=== PATIENT | female | born 1995 ===

== ENCOUNTER 2016-11-21 18:37 | Observation (INO) | payer OTHER ==
[2016-11-21] MEDS ORDERED: Morphine INJ* 4 MG/ML 1 ML SYRINGE IV ONE (21:06)
[2016-11-21] MEDS ORDERED: NS 0.9% 1000 ML* 1,000 ML IV ONE (21:06)
[2016-11-21] MEDS ORDERED: Ondansetron INJ* 2 MG/ML VIAL IV ONE (21:06)
[2016-11-21] MEDS ORDERED: Morphine INJ* 4 MG/ML 1 ML SYRINGE ONE (21:09)
[2016-11-21] MEDS ORDERED: Ondansetron INJ* 2 MG/ML VIAL ONE (21:10)
[2016-11-21 21:48] LABS: Albumin 4.2 g/dL (3.2-5.2); BUN/Creatinine Ratio 10.8 (8-20); C Reactive Protein 4.38 mg/L (< 5.00); Calcium 9.4 mg/dL (8.6-10.3); EGFR African American 112.7 (>60); EGFR Non-African American 87.6 (>60); Globulin 3.4 g/dL (2-4); Hematocrit 38 % (35-47); Hemoglobin 12.4 g/dl (12.0-16.0); Mean Corpuscular HGB Conc 32 g/dl (31-36); Mean Corpuscular Hemoglobin 25 pg (27-31); Mean Corpuscular Volume 78 fL (80-97); Mean Platelet Volume 8 um3 (7.4-10.4); Potassium 3.6 mmol/L (3.5-5.0); Red Blood Count 4.92 10^6/ul (4.0-5.4); Red Cell Distribution Width 13 % (10.5-15); Total Bilirubin 0.6 mg/dL (0.2-1.0); Total Protein 7.6 g/dL (6.4-8.9); White Blood Count 16.5 10^3/ul (3.5-10.8)
--- NOTE | 2016-11-21 22:49 | RAD ---
Indication: Right lower quadrant pain. COMPARISON: There are no prior studies available for comparison. TECHNIQUE: Multiple real-time transabdominal images of the pelvis were obtained. FINDINGS: The uterus is normal in size, shape and echogenicity. The uterus measured 7.8 x 3.1 x 3.9 cm. The endometrial echo measured 0.8 cm in thickness. The right ovary measured 3.1 x 1.6 x 3.3 cm. The left ovary measured 3.9 x 2.9 x 2.8 cm. There is vascular flow within both ovaries. There is a 2.3 x 2.2 x 2.4 cm left ovarian cyst. This is most consistent with a physiologic cyst. No free intraperitoneal fluid is seen. IMPRESSION: SMALL LEFT OVARIAN CYST, OTHERWISE UNREMARKABLE STUDY.
--- NOTE | 2016-11-21 22:51 | RAD ---
INDICATION: Right lower quadrant pain. COMPARISON: There are no prior studies available for comparison. TECHNIQUE: Multiple real-time images of the right lower quadrant were obtained using a graded compression technique. FINDINGS: There is a small amount of free intraperitoneal fluid in the right lower quadrant. No focal fluid collection is seen. The appendix was not visualized limiting the study. IMPRESSION: 1. THE APPENDIX WAS NOT VISUALIZED LIMITING THE STUDY, CONSIDER A CT OF THE ABDOMEN AND PELVIS WITH INTRAVENOUS AND ORAL CONTRAST FOR FURTHER EVALUATION. 2. SMALL AMOUNT OF FREE INTRAPERITONEAL FLUID IN THE RIGHT LOWER QUADRANT.
[2016-11-21 23:14] LABS: Urine Bilirubin Negative (Negative); Urine Glucose Negative (Negative); Urine Nitrite Negative (Negative)
[2016-11-22] MEDS ORDERED: Iohexol 300* (CONTRAST) 10 ML SDV IV ONE (00:25)
[2016-11-22] MEDS ORDERED: HYDROmorphone* 1 MG/ML 1 ML SYR IV SLOW PU PRN (04:22)
[2016-11-22] MEDS ORDERED: Ondansetron INJ* 2 MG/ML VIAL IV PRN ×2 (04:23→10:37)
[2016-11-22] MEDS ORDERED: Piperac/Tazob 3.375 gm in NS* 3.375 GM/100 ML BAG IVPB ONE (04:24)
--- NOTE | 2016-11-22 06:00 | ED ---
Sandee, Doctor,Clau, scribed for Asha Nickerson MD on 11/21/16 at 2223 . GI/ HPI - HPI Summary HPI Summary: 21 year old female arrived to [facility] c/o lower abdominal pain and n/v since 14: 00 today. She rates her pain as 10/10 now, 5/10 at onset. She describes the onset as sudden; has no other relevant medical problems. She is a student at [employer]; her LMP was on 11/02/2016, denies any possibility of . - History of Current Complaint Chief Complaint: EDAbdPain Time Seen by Provider: 11/21/16 20:49 Stated Complaint: ABD PAIN,VOMITING Hx Obtained From: Patient Onset/Duration: Started Hours Ago Timing: Constant Severity: Moderate Current Severity: Moderate Pain Intensity: 10 Associated Signs and Symptoms: Positive: Nausea, Vomiting, Fever - subjective - Allergy/Home Medications Allergies/Adverse Reactions: Allergies Allergy/AdvReac Type Severity Reaction Status Date / Time chloroquinolone Allergy Unknown Uncoded 08/12/15 01:18 Reaction Details PMH/Surg Hx/FS Hx/Imm Hx Psychiatric History: Denies: Hx Eating Disorder, Hx of Violent Episodes Against Others Infectious Disease History: No Infectious Disease History: Denies: Traveled Outside the [place] in Last 30 Days - Family History Known Family History: Negative: Cardiac Disease - Social History Occupation: Student Alcohol Use: Rare Alcohol Amount: 5-6 drinks Substance Use Type: Reports: None Smoking Status (MU): Never Smoked Tobacco Review of Systems Positive: Fever - subjective Positive: Abdominal Pain, Vomiting, Nausea All Other Systems Reviewed And Are Negative: Yes Physical Exam Triage Information Reviewed: Yes Vital Signs On Initial Exam: Initial Vitals Temp Pulse Resp BP Pulse Ox 98.3 F 78 16 136/69 100 11/21/16 18:39 11/21/16 18:39 11/21/16 18:39 11/21/16 18:39 11/21/16 18:39 Appearance: Positive: Well-Appearing, No Pain Distress Skin: Positive: Warm, Skin Color Reflects Adequate Perfusion, Dry Eyes: Positive: EOMI, TAMMY ENT: Positive: Pharynx normal, TMs normal Neck: Positive: Supple, Nontender Respiratory/Lung Sounds: Positive: Clear to Auscultation, Breath Sounds Present. Negative: Rales, Rhonchi, Wheezes Cardiovascular: Positive: RRR. Negative: Murmur, Rub Abdomen Description: Positive: Nontender, Soft. Negative: Distended, Guarding Bowel Sounds: Positive: Present Musculoskeletal: Positive: Strength/ROM Intact Neurological: Positive: Sensory/Motor Intact, Alert, Oriented to Person Place, Time, CN Intact II-III Psychiatric: Positive: Affect/Mood Appropriate Diagnostics - Vital Signs Vital Signs Temp Pulse Resp BP Pulse Ox 11/21/16 21:26 18 11/21/16 19:43 97.8 F 74 18 121/65 100 11/21/16 18:39 98.3 F 78 16 136/69 100 - Laboratory Lab Results: Lab Results 11/21/16 11/21/16 11/21/16 Range/Units 21:20 21:20 21:20 WBC 16.5 H (3.5-10.8) 10^3/ul RBC 4.92 (4.0-5.4) 10^6/ul Hgb 12.4 (12.0-16.0) g/dl Hct 38 (35-47) % MCV 78 L (80-97) fL MCH 25 L (27-31) pg MCHC 32 (31-36) g/dl RDW 13 (10.5-15) % Plt Count 312 (150-450) 10^3/ul MPV 8 (7.4-10.4) um3 Neut % (Auto) 80.3 (38-83) % Lymph % (Auto) 12.5 L (25-47) % Drew % (Auto) 7.0 (1-9) % Eos % (Auto) 0.1 (0-6) % Baso % (Auto) 0.1 (0-2) % Absolute Neuts (auto) 13.2 H (1.5-7.7) 10^3/ul Absolute Lymphs (auto) 2.1 (1.0-4.8) 10^3/ul Absolute Monos (auto) 1.2 H (0-0.8) 10^3/ul Absolute Eos (auto) 0 (0-0.6) 10^3/ul Absolute Basos (auto) 0 (0-0.2) 10^3/ul Absolute Nucleated RBC 0.02 10^3/ul Nucleated RBC % 0.1 Sodium 134 (133-145) mmol/L Potassium 3.6 (3.5-5.0) mmol/L Chloride 100 L (101-111) mmol/L Carbon Dioxide 25 (22-32) mmol/L Anion Gap 9 (2-11) mmol/L BUN 9 (6-24) mg/dL Creatinine 0.83 (0.51-0.95) mg/dL Est GFR ( Amer) 112.7 (>60) Est GFR (Non-Af Amer) 87.6 (>60) BUN/Creatinine Ratio 10.8 (8-20) Glucose 105 H (70-100) mg/dL Lactic Acid 1.0 (0.5-2.0) mmol/L Calcium 9.4 (8.6-10.3) mg/dL Total Bilirubin 0.60 (0.2-1.0) mg/dL AST 16 (13-39) U/L ALT 11 (7-52) U/L Alkaline Phosphatase 62 (34-104) U/L C-Reactive Protein 4.38 (< 5.00) mg/L Total Protein 7.6 (6.4-8.9) g/dL Albumin 4.2 (3.2-5.2) g/dL Globulin 3.4 (2-4) g/dL Albumin/Globulin Ratio 1.2 (1-3) Lipase 33 (11.0-82.0) U/L Beta HCG, Quant 1.00 mIU/mL Result Diagrams: 11/21/16 21:20 11/21/16 21:20 Lab Statement: Any lab studies that have been ordered have been reviewed, and results considered in the medical decision making process. - CT A/P CT CT Interpretation Completed By: Radiologist - Impression: suspected early acute appendicitis - Ultrasound No standard instances Ultrasound Interpretation Completed By: Radiologist - Pelvis US - IMPRESSION: SMALL LEFT OVARIAN CYST, OTHERWISE UNREMARKABLE STUDY. GIGU Course/Dx - Course Course Of Treatment: 21 yo female with rlq pain u/s neg for ovarian cyst with wbc of [address] with acute appendicitis. Pt admitted by Dr. Hunt - Diagnoses Provider Diagnoses: Appendicitis - Physician Notifications Discussed Care Of Patient With: 04:00 - Spoke with Dr. Hunt ([facility] Surgeon) about pt. He agrees to admit her. Discharge - Discharge Plan Condition: Stable Disposition: ADMITTED TO [facility] documentation as recorded by the scribe, Doctor,Clau accurately reflects the service I personally performed and the decisions made by me, Asha Nickerson MD.
--- NOTE | 2016-11-22 07:59 | RAD ---
INDICATION: Right lower quadrant pain COMPARISON: Pelvic sonogram November 21, 2016 TECHNIQUE: Axial source images were obtained from the hemidiaphragms to the symphysis pubis following administration of oral and intravenous contrast. 100 mL Omnipaque 300 was utilized. Coronal and sagittal reconstructed images were acquired. Lung bases: The lung bases are clear. Liver: The liver is normal in size. There are no masses. There is no ductal dilatation. Gallbladder: There are no calcified gallstones. There is no evidence of wall thickening or pericholecystic fluid. Spleen: The spleen is normal in size. There are no masses. Pancreas: There is no focal pancreatic mass or ductal dilatation. Adrenal glands: There is no evidence of adrenal mass. Kidneys: The kidneys are normal in size and position. There are prompt nephrograms and there is prompt excretion bilaterally. There are no renal parenchymal masses. There is no evidence of nephrolithiasis. Adenopathy: There is no evidence of adenopathy by size criteria. Fluid collections: There are no free or localized fluid collections. Vessels:There are no significant atherosclerotic changes involving the aorta. There is no focal aneurysm. The iliac vessels are normal in caliber. The IVC appears normal. GI tract: The upper GI tract is unremarkable. The appendix is fluid-filled and dilated to 8 mm. The findings suggest an early acute appendicitis. There is no significant periappendiceal inflammatory change. There are no findings of obstruction or perforation. The remainder of the lower GI tract is normal. Pelvic organs: The uterus and right adnexa are unremarkable. There is a 2.7 cm left ovarian cyst Bladder: There are no bladder masses. Abdominal and pelvic soft tissues: The extraperitoneal abdominal and pelvic soft tissues appear normal.. Osseous structures: There are no acute osseous findings. Other: None IMPRESSION: 1. Suspect early acute appendicitis. 2. 2.7 cm left ovarian cyst
[2016-11-22] MEDS ORDERED: Buffered Lidocaine 1% SYRIN* 3 ML/SYR SYRINGE INTRADERM ONE (08:40)
[2016-11-22] MEDS ORDERED: Famotidine IV* 10 MG/ML 2 ML (20 mg) IV SLOW PU ONE (08:40)
--- NOTE | 2016-11-22 09:36 | HP ---
DATE OF ADMISSION: 11/21/16 PATIENT OF: Dr. Feliz Hunt (dictated by DAQUAN Ambrocio) REASON FOR ADMISSION: Lower abdominal pain, and possible appendicitis. HISTORY OF PRESENT ILLNESS: Ms. Cardenas is a pleasant 21-year-old female who presented to the Emergency Room last night with complaints of lower abdominal pain since earlier that afternoon. She notes that her pain started roughly around 2 o'clock in the afternoon localized to the lower abdomen and gradually radiated to the right lower quadrant. She reports that the pain was worse, rated as 10/10, but got slightly better upon presentation to the ER. She also reports associated nausea and vomiting, but denies any changes in the bowel habits or bleeding per rectum. She has never had any similar complaints in the past. She is a student at [employer], and her last menstrual period was on . Patient was evaluated in the ER and she had an ultrasound as well as CT scan of the abdomen and pelvis that revealed a fluid-filled appendix with questionable early appendicitis for which she was admitted overnight for observation. The following morning, the patient is actually very comfortable, and denies any returned abdominal pain. She had only one shot of morphine last night for pain, and she went to the bathroom multiple times with no complaints of dysuria, hematuria or urinary frequency. PAST MEDICAL HISTORY: Essentially unremarkable. She denies any history of heart, lung, liver or kidney disease. PAST SURGICAL HISTORY: Significant for excision of a cyst above her right eyelid , but denies any history of abdominal surgeries. CURRENT MEDICATIONS: She takes no medications at home. ALLERGIES: She is allergic to CHLOROQUINOLONE - which is a drug used for treatment of malaria. FAMILY HISTORY: She denies any family history of colorectal malignancies. SOCIAL HISTORY: Patient is a student at [employer], majoring in biology. She consumes alcohol occasionally, but never smoked and denies illicit drug use. REVIEW OF SYSTEMS: See HPI; otherwise, negative. She denies any headache, dizziness, blurred vision. No chest pain, shortness of breath or hemoptysis. She admits to lower abdominal pain with associated nausea and vomiting, but denies any recent changes in her bowel habits. No flank pain, dysuria, hematuria, or urinary frequency. PHYSICAL EXAMINATION GENERAL: She is a pleasant, healthy-appearing, young female in no acute distress or discomfort at the time of admission. VITAL SIGNS: Her vitals reveal a temperature of 98.0 orally, pulse 62, respirations 18, blood pressure 103/56, and O2 sat of 100% on room air. HEENT: Sclerae anicteric. PERRLA. EOMs intact. Oropharynx is pink, moist, with no exudate. NECK: Supple. Trachea midline. No cervical adenopathy, thyromegaly, or JVD. LUNGS: Clear to auscultation bilaterally. HEART: Regular rate and rhythm. Normal S1 and S2 without rubs, murmurs, or gallops. BACK: With normal curvature. No CVA tenderness. BREAST EXAM: Deferred at this time. ABDOMEN: Soft and nondistended. The abdomen was palpated throughout, and no significant tenderness was noted, especially in the right lower quadrant; however, patient experienced a mild rebound tenderness over McBurney's point when exam was performed. There is no guarding, rigidity, and no evidence of hernias, masses or hepatosplenomegaly. EXTREMITIES: Without cyanosis, clubbing, or edema. NEUROLOGIC: Grossly intact. RECTAL EXAM: Deferred at this time. LABORATORY DATA: Patient had CBC in the ER revealing a white count of 16,500, hemoglobin 12.4, hematocrit 38, and platelets of 312. Chemistry - sodium 134, potassium 3.6, chloride 100, CO2 25, BUN 9, creatinine 0.8, glucose 105. Her LFTs and lipase were essentially within normal limits. Her Beta HCG quantitative was normal with no evidence of . ACCESSORY DIAGNOSTIC DATA: In the ER, the patient first had a pelvic ultrasound that revealed evidence of a small left ovarian cyst; otherwise unremarkable. She also had an abdominal ultrasound that failed to reveal any visible appendix, for which a CT scan of the abdomen and pelvis was recommended. She went on to have a CT scan of the abdomen and pelvis that revealed a fluid-filled appendix with no evidence of any inflammation around, but suspected early acute appendicitis. She also had a 2.7 cm left ovarian cyst. ASSESSMENT: A 21-year-old female with acute onset of right lower quadrant abdominal pain that has improved upon admission overnight using IV fluids and antibiotics. She also had abdominal ultrasound and CT scan with findings suspicious for acute early appendicitis. PLAN: I went on and discussed with the patient the findings of her physical exam as well as the findings of her ultrasound and CT scan from last night. She appears to be comfortable this morning with no recurrent abdominal pain. However, she experienced some rebound tenderness over the right lower quadrant upon examination. The case will be discussed with Dr. Garces regarding further recommendation of possible early appendicitis. I discussed with the patient the possibility of proceeding with a laparoscopic appendectomy given her exam findings and the radiographic evidence. The rationale, indications, risks and benefits were discussed with her today. Risks include but are not limited to infection, bleeding, and injury to adjacent structures. She understood, and wishes to proceed with surgery if indicated. Again, I will discuss the case with Dr. Garces for reexamination and determination if patient needs to be taken to the surgical suite this morning in anticipation for a laparoscopic appendectomy. We will follow her up accordingly. DAQUAN HASSAN [id number]/[facility] #: [id number] RADHA
[2016-11-22] MEDS ORDERED: ceFOXitin 2 GM IVPREMIX* 2 GM/50 ML BAG ONE (09:42)
[2016-11-22] MEDS ORDERED: Bupivacaine 0.25% EPI 200,000* 30 ML SDV ONE (10:05)
[2016-11-22] MEDS ORDERED: Cisatracurium* 2 MG/ML MDV 10 ML ONE (10:30)
[2016-11-22] MEDS ORDERED: fentaNYL* 50 MCG/ML 2 ML VIAL (100 MCG VIAL) ONE ×3 (10:30→12:25)
[2016-11-22] MEDS ORDERED: fentaNYL* 50 MCG/ML 2 ML VIAL (100 MCG VIAL) IV PRN (10:37)
[2016-11-22] MEDS ORDERED: PROCHLORPERAZINE INJ 5 MG/ML 2 ML VIAL IV PRN (10:37)
[2016-11-22] MEDS ORDERED: HYDROmorphone* 1 MG/ML 1 ML SYR IV PRN (10:37)
[2016-11-22] MEDS ORDERED: DiMENhydriNATE IV* 50 MG/ML VIAL IV PUSH PRN (10:37)
[2016-11-22] MEDS ORDERED: Succinylcholine* 20 MG/ML 10 ML VIAL ONE (10:46)
[2016-11-22] MEDS ORDERED: Lidocaine 2% PF* 5 ML VIAL ONE (10:46)
[2016-11-22] MEDS ORDERED: Dexamethasone IV* 4 MG/ML 1 ML (4 MG) ONE (10:46)
[2016-11-22] MEDS ORDERED: Propofol* 10 MG/ML 20 ML BTL IV PUSH ONE (10:46)
[2016-11-22] MEDS ORDERED: Desflurane* 240 ML INH ONE (11:15)
--- NOTE | 2016-11-22 11:55 | SURGPN ---
Brief Operative Note - Surgery Procedures: OPERATIVE REPORT PRE-OP: Acute appendicitis POST-OP: Same, Left ovarian cyst PROCEDURE: Laparoscopic Appendectomy SURGEON: MD Grey ANESTHESIA: General with Local with Dr. Knight ASST: none IVF: 1 liter of crystalloid EBL: min SPECIMEN: appendix DRAIN: none WOUND CLASS: 3 COMPLICATIONS: none TO PACU
[2016-11-22] MEDS ORDERED: Ketorolac INJ* 30 MG/ML 1 ML VIAL IV PUSH PRN (11:57)
[2016-11-22] MEDS ORDERED: oxyCODONE/Acetamin 5/325 MG* TAB PO PRN (11:58)
[2016-11-22] MEDS ORDERED: Neostigmine Methylsulfate* 2 MG/2 ML SYRINGE ONE (12:02)
[2016-11-22] MEDS ORDERED: Ketorolac INJ* 30 MG/ML 1 ML VIAL ONE (12:02)
[2016-11-22] MEDS ORDERED: Glycopyrrolate IV* 0.2 MG/ML 1 ML VIAL ONE (12:20)
[2016-11-22] MEDS: Heparin VIAL(*) 5000 UNITS/ML VIAL (FIVE THOUSAND) SUBCUT SCH ×2 (14:12→21:58)
[2016-11-23] MEDS: oxyCODONE/Acetamin 5/325 MG* TAB PO PRN ×2 (00:33→08:40)
[2016-11-23] MEDS: Heparin VIAL(*) 5000 UNITS/ML VIAL (FIVE THOUSAND) SUBCUT SCH (05:45)
--- NOTE | 2016-11-23 07:38 | PN ---
Progress Note - Progress Note SOAP: Subjective: Doing well-tolerating po and ambulating without difficulty Pain is adequately controlled Objective: Temp Pulse Resp BP Pulse Ox 98.1 F 55 16 104/38 99 11/23/16 03:25 11/23/16 03:25 11/23/16 03:25 11/23/16 03:25 11/23/16 03:25 Intake & Output 11/21/16 11/22/16 11/23/16 11/24/16 06:59 06:59 06:59 06:59 Intake Total 100 4919 Output Total 4550 Balance 100 369 Weight 180 lb Intake: IV Fluids 100 1739 LR 1739 Oral 3180 Output: Urine 4550 PEX: Comfortable Lungs are CTA Abd is soft and non-distended. Incisions are clean and dry. Bowel sounds are present. Extremities without edema Assessment: POD # 1 s/p lap appy for acute appendicitis Plan: D/C home today Instructions given Outpatient follow up arranged No antibiotics needed.
[2016-11-23 07:53] VITALS: BP 124/52
--- NOTE | 2016-11-23 15:14 | OP ---
DATE OF OPERATION: 11/23/16 - ROOM #332 DATE OF : [birth year] SURGEON: Talib Edmonds MD CINDER PITMAN: None. ANESTHESIOLOGIST: Dr. Knight. ANESTHESIA: General with local. PRE-OP DIAGNOSIS: Acute appendicitis. POST-OP DIAGNOSES: 1. Acute appendicitis. 2. Left ovarian cyst. OPERATIVE PROCEDURE: Laparoscopic appendectomy. IV FLUIDS: 1 L of crystalloid. SPECIMENS: Appendix. WOUND CLASSIFICATION: III. COMPLICATIONS: None. DRAINS: None. 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 She was noted to have a white blood cell count of 16,000. Had an ultrasound of her pelvis, which showed a left ovarian cyst and some free pelvic fluid. CT scan showed findings consistent with early acute appendicitis, and she was admitted to the surgical service. After review of her history, physical exam, and CT scan, it was felt that she does have acute appendicitis and an appendectomy has been recommended. I discussed the procedure with her and her mother on the telephone, who is in [place], and the risks but not limited to bleeding, infection, intraabdominal abscess formation, injury to peritoneal and retroperitoneal structures, possibility of an open procedure, possibility that other indicated procedures may need to be performed depending on operative findings were all explained. The risks of anesthesia, recovery time, and hospital stay were also discussed. FINDINGS: The patient had a left ovarian cyst that was noted on the preoperative ultrasound as well. The distal half of the appendix was edematous and inflamed consistent with acute appendicitis. No other acute abnormalities were noted. DESCRIPTION OF PROCEDURE: Written and informed consent was obtained, the abdomen was marked with indelible ink, and IV antibiotics were administered preoperatively. The patient was taken to the operating room and placed in the supine position. Sequential compression devices and a warming blanket were applied. General anesthesia was administered, and the abdomen was prepped and draped in the usual sterile fashion. Time-out verification was completed. Initially, a small transverse incision was made just above the umbilicus and the peritoneal cavity was entered under direct vision. A 12-mm blunt port was inserted and the abdomen was insufflated to 15 mmHg. A 5-mm port was placed in the left lower abdominal wall. On evaluation of the bladder, it was markedly distended, extending up out of the pelvis, making visualization of the gynecologic organs difficult. Thus, an intraoperative straight cath was performed underneath the drapes, which decompressed the bladder, allowing me to visualize the uterus and both ovaries. A catheter was not left in the bladder. The right ovary was identified. It was normal. The uterus appeared to be unremarkable. There was some serous fluid in the pelvis. The left ovary was normal, did have an ovarian cyst on it. She appeared to be unremarkable, and this had been shown as well on the preoperative ultrasound. The distal terminal ileum of at least 2 feet and the cecum was normal. The appendix was intraperitoneal and distal half was edematous and slightly inflamed , as well as its mesentery, consistent with acute appendicitis. The proximal appendix was somewhat more dilated, but appeared to be without inflammation. The appendix was grasped and brought up into view and the mesoappendix was divided sequentially from distal to proximal using a LigaSure device. The base of the appendix and cecum were normal. I used an EndoGIA trinh load of a 45 mm stapler to divide the appendix at its base and this was placed in an Endo Catch bag and brought out through the umbilical incision. The right lower quadrant was irrigated. Hemostasis was assured. All ports were removed under direct vision of the camera. It should be noted that I had placed a second 5-mm port in the suprapubic position after the bladder had been decompressed. The umbilical fascia was closed with interrupted 0 Polysorb suture. The skin at all three incisions was approximated with a subcuticular 4-0 Polysorb suture. Steri-Strips and sterile dressings were applied. The patient tolerated the procedure well and was taken to the recovery room in stable condition. CC: [facility]; [facility] * [id number]/[facility] #: [id number] [facility] HOSPITALYeison
== END 2016-11-23 13:25 | disposition home or self-care (01) ==
LOC: ED 18:37 → SSU 11-22 05:07
PROVIDERS: ADMIT Surgery; ATTEND Surgery
DX: K35.80 Unspecified acute appendicitis (principal); N83.202 Unspecified ovarian cyst, left side; Z88.1 Allergy status to other antibiotic agents
CPT/HCPCS: 36415; 74177; 76705; 76856; 80053; 81003; 83605; 83690; 84702; 85025; 86140; 88304; 94760; 96374; 96375; 99284; A9270-GY; C1776; G0378; J0330; J0694; J1100; J1644; J1885; J2270; J2405; J2543; J2704; J3010; Q9967